=== PATIENT | male | born 1965 | race Caucasian/White ===

== ENCOUNTER 2020-11-29 21:43 | Emergency (ER) | payer OTHER ==
[2020-11-29 23:05] LABS: BASOPHIL 0.2 % (0-2); EOSINOPHIL 1.5 % (0-5); HCT 35.7 % (42.0-52.0); HGB 12.1 g/dl (13.2-18.0); MCH 30.9 pg (25.0-31.0); MCHC 33.9 g/dL (32.0-36.0); MCV 91.1 fL (78.0-100.0); MONOCYTE 13.2 % (0-12); MPV 9.8 fL (6.0-9.5); NEUTROPHIL 46.8 % (41-80); NRBC 0; PLT 264 K/uL (150-400); RBC 3.92 M/uL (4.70-6.00); RDW 14.5 % (11.5-14.0)
[2020-11-29 23:10] LABS: INR 1.05 (0.9-1.2); PTT 28.5 SECONDS (22.2-34.7)
[2020-11-29 23:12] LABS: D-DIMER < 0.27 ug/mLFEU (0.00-0.41)
[2020-11-29 23:23] LABS: ALBUMIN 3.5 g/dL (3.4-5.0); BILIRUBIN - TOTAL 0.4 mg/dL (0.2-1.0); BUN/CREAT RATIO (CALC) 22.5 RATIO; CREATININE 0.71 mg/dL (0.67-1.17); GLOBULIN (CALCULATION) 4.1 g/dL; POTASSIUM 3.9 mmol/L (3.5-5.1); PRO-BNP 32 pg/mL (<125); TOTAL PROTEIN 7.6 g/dL (6.4-8.2)
[2020-11-30] MEDS ORDERED: ZESTRIL5 MG PO (04:07)
[2020-11-30] MEDS ORDERED: HYDROCODONE-CH473 ML PO ×2 (04:07→19:11)
== END 2020-11-30 04:25 | disposition home or self-care (01) ==
LOC: FER 21:43
PROVIDERS: Emergency Medicine Emergency Medical Services
DX: M94.0 Chondrocostal junction syndrome [Tietze] (principal); R00.0 Tachycardia, unspecified; E11.9 Type 2 diabetes mellitus without complications; Z20.822 Contact with and (suspected) exposure to COVID-19; Z98.890 Other specified postprocedural states; Z79.84 Long term (current) use of oral hypoglycemic drugs
CPT/HCPCS: 36415; 71275; 80053; 83690; 83880; 84484; 85025; 85379; 85610; 85730; 93005; 94640; 94664; J2930; Q9967; U0002

== ENCOUNTER 2020-12-05 12:03 | Emergency (ER) | payer OTHER ==
[~2020-12-05 12:03] MED LIST: HYDROCODONE-CH473 ML PO; ZESTRIL5 MG PO
[2020-12-05 14:28] LABS: BASOPHIL 0.2 % (0-2); EOSINOPHIL 2.8 % (0-5); HCT 37.3 % (42.0-52.0); HGB 12.4 g/dl (13.2-18.0); LYMPHOCYTE 55.3 % (15-48); MCH 30.2 pg (25.0-31.0); MCHC 33.2 g/dL (32.0-36.0); MCV 90.8 fL (78.0-100.0); MONOCYTE 6.7 % (0-12); MPV 9.4 fL (6.0-9.5); NEUTROPHIL 34.7 % (41-80); NRBC 0; PLT 287 K/uL (150-400); RBC 4.11 M/uL (4.70-6.00); RDW 13.9 % (11.5-14.0)
[2020-12-05 14:41] LABS: ALBUMIN 3.2 g/dL (3.4-5.0); BILIRUBIN - TOTAL 0.3 mg/dL (0.2-1.0); BUN/CREAT RATIO (CALC) 14.5 RATIO; CREATININE 0.69 mg/dL (0.67-1.17); GLOBULIN (CALCULATION) 3.8 g/dL; POTASSIUM 4.1 mmol/L (3.5-5.1)
[2020-12-05] MEDS ORDERED: PREDNISONE 20MG20 MG PO (15:47)
[2020-12-05] MEDS ORDERED: PROAIR HFA8.5 GM INH (15:47)
[2020-12-05] MEDS ORDERED: ZPAK PO (15:48)
== END 2020-12-05 16:09 | disposition home or self-care (01) ==
LOC: FER 12:03
PROVIDERS: Physician Assistant
DX: J18.9 Pneumonia, unspecified organism (principal); J44.1 Chronic obstructive pulmonary disease with (acute) exacerbation; R91.8 Other nonspecific abnormal finding of lung field; E11.9 Type 2 diabetes mellitus without complications; F17.290 Nicotine dependence, other tobacco product, uncomplicated; Z79.84 Long term (current) use of oral hypoglycemic drugs
CPT/HCPCS: 36415; 71045; 80053; 84484; 85025; 93005; 94664

== ENCOUNTER 2020-12-31 04:54 | Emergency (ER) | payer OTHER ==
[~2020-12-31 04:54] MED LIST changes: +PREDNISONE 20MG20 MG PO; +PROAIR HFA8.5 GM INH; +ZPAK PO
[2020-12-31 05:20] LABS: BASOPHIL 0.3 % (0-2); EOSINOPHIL 1.2 % (0-5); HCT 39.8 % (42.0-52.0); HGB 13.6 g/dl (13.2-18.0); LYMPHOCYTE 25.8 % (15-48); MCH 30.9 pg (25.0-31.0); MCHC 34.2 g/dL (32.0-36.0); MCV 90.5 fL (78.0-100.0); MONOCYTE 9.2 % (0-12); MPV 9.6 fL (6.0-9.5); NEUTROPHIL 62.9 % (41-80); NRBC 0; PLT 293 K/uL (150-400); WBC 10.9 K/uL (4.0-10.5)
[2020-12-31 05:48] LABS: PRO-BNP 40 pg/mL (<125)
[2020-12-31 05:50] LABS: ALBUMIN 3.6 g/dL (3.4-5.0); BILIRUBIN - TOTAL 0.6 mg/dL (0.2-1.0); BUN/CREAT RATIO (CALC) 19.8 RATIO; CREATININE 0.86 mg/dL (0.67-1.17); GLOBULIN (CALCULATION) 4.8 g/dL; POTASSIUM 4.3 mmol/L (3.5-5.1); TOTAL PROTEIN 8.4 g/dL (6.4-8.2)
[2020-12-31 06:44] LABS: CORONAVIRUS 2019 SARS-COV-2 NEGATIVE (NEGATIVE); INFLUENZA A NAA NEGATIVE (NEGATIVE)
== END 2020-12-31 06:33 | disposition left against medical advice (07) ==
LOC: FER 04:54
PROVIDERS: Emergency Medicine
DX: J44.1 Chronic obstructive pulmonary disease with (acute) exacerbation (principal); R00.0 Tachycardia, unspecified; I10 Essential (primary) hypertension; E11.9 Type 2 diabetes mellitus without complications; Z86.16 Personal history of COVID-19; Z87.891 Personal history of nicotine dependence; Z79.84 Long term (current) use of oral hypoglycemic drugs; Z20.822 Contact with and (suspected) exposure to COVID-19
CPT/HCPCS: 36415; 71045; 80053; 83605; 83880; 84145; 84484; 85025; 85379; 87040; 93005; 94664; 94760; J2930; U0002

== ENCOUNTER 2021-01-01 19:31 | Day surgery (SDCO) | payer OTHER ==
[~2021-01-01] VITALS: Ht 172.7 cm; Wt 99.8 kg
[2021-01-01 20:16] LABS: BASOPHIL 0.2 % (0-2); EOSINOPHIL 0.4 % (0-5); HCT 37.4 % (42.0-52.0); HGB 12.5 g/dl (13.2-18.0); LYMPHOCYTE 26.6 % (15-48); MCH 30.7 pg (25.0-31.0); MCHC 33.4 g/dL (32.0-36.0); MCV 91.9 fL (78.0-100.0); MONOCYTE 8.1 % (0-12); NEUTROPHIL 64.1 % (41-80); NRBC 0; PLT 287 K/uL (150-400); RBC 4.07 M/uL (4.70-6.00); RDW 13.2 % (11.5-14.0); WBC 10.8 K/uL (4.0-10.5)
[2021-01-01 20:35] LABS: LACTIC ACID 2.9 mmol/L (0.4-1.9)
[2021-01-01 20:38] LABS: ALBUMIN 3.6 g/dL (3.4-5.0); ALKALINE PHOSHATASE 80 U/L (46-116); ALT 100 U/L (16-63); AST 33 U/L (15-37); BILIRUBIN - TOTAL 0.2 mg/dL (0.2-1.0); BUN 22 mg/dL (7-18); BUN/CREAT RATIO (CALC) 25.6 RATIO; CHLORIDE 106 mmol/L (98-107); CO2 (BICARBONATE) 26 mmol/L (21-32); CREATININE 0.86 mg/dL (0.67-1.17); GLOBULIN (CALCULATION) 4.8 g/dL; GLUCOSE 351 mg/dL (74-106); POTASSIUM 3.9 mmol/L (3.5-5.1); PRO-BNP 220 pg/mL (<125); TOTAL PROTEIN 8.4 g/dL (6.4-8.2)
[2021-01-01 22:41] LABS: BILIRUBIN NEGATIVE (NEGATIVE); BLOOD NEGATIVE Ery/uL (NEGATIVE); CLARITY CLEAR (CLEAR); COLOR YELLOW (YELLOW); GLUCOSE (U) 3+ mg/dL (NORMAL); LEUKOCYTES NEGATIVE Leu/uL (NEGATIVE); NITRITE NEGATIVE (NEGATIVE); PROTEIN NEGATIVE (NEGATIVE)
[2021-01-01 22:42] LABS: AMPHETAMINES NEGATIVE (NEGATIVE); BARBITURATES NEGATIVE (NEGATIVE); ECSTASY (MDMA) NEGATIVE (NEGATIVE); MARIJUANA (THC) NEGATIVE (NEGATIVE); METHADONE NEGATIVE (NEGATIVE); OPIATES POSITIVE (NEGATIVE); OXYCODONE POSITIVE (NEGATIVE)
--- NOTE | 2021-01-02 00:43 | NUR ---
PT ARRIVED TO FLOOR. ELEMENTARY READING TUTOR ON TABLE. PT STATES "IM NOT WEARING NO FING HEART MONITOR, MY HEART IS GOOD." ADVISED PT DOCTOR ORDERED TO KEEP AN EYE ON HIS OXYGEN LEVEL TOO. WHILE TRYING TO DO ASSESSMENT, PT MADE PHONE CALL TO FRIEND ASKING FOR 4 DOUBLE CHEESEBURGERS. I ADVISED PATIENT HE WAS ON CONSISTENT CARB DIET, AND THE DOCTOR WOULD NOT WANT HIM TO HAVE THAT. PT STARTED YELLING SAYING I WAS RUDE AND I NEEDED TO MIND MY OWN BUSINESS. PT STARTS RIPPING OFF HEART MONITOR AND LEAVES AMA. CRYSTAL CUTTER AWARE, RITA SLOAN AWARE.
== END 2021-01-02 00:43 | disposition left against medical advice (07) ==
LOC: FER 19:31 → FMS 22:45
PROVIDERS: Emergency Medicine Emergency Medical Services; ADMIT Allergy & Immunology Allergy
DX: J44.1 Chronic obstructive pulmonary disease with (acute) exacerbation (principal); E11.9 Type 2 diabetes mellitus without complications; I10 Essential (primary) hypertension; F17.200 Nicotine dependence, unspecified, uncomplicated; Z79.84 Long term (current) use of oral hypoglycemic drugs; Z79.899 Other long term (current) drug therapy; Z20.822 Contact with and (suspected) exposure to COVID-19
CPT/HCPCS: 36415; 36600; 71045; 80053; 80305; 81003; 82803; 83605; 83735; 83880; 84145; 84484; 85025; 85379; 87040; 87070; 87076; 87077; 87088; 87186; 87205; 93005; 94010; 94640; 94664; G0378; G0480; J0456; J0696; J2060; J2270; J2405; J2930; J7050; U0002